=== PATIENT | male | born 1970 | race Caucasian/White ===

== ENCOUNTER 2020-10-02 21:24 | Emergency (ER) | payer SELFPAY ==
[~2020-10-02] VITALS: Ht 177.8 cm; Wt 79.4 kg
[2020-10-02 21:32] VITALS: BP 129/76
--- NOTE | 2020-10-02 21:38 | NUR ---
To ED bed 04.
[2020-10-02] MEDS ORDERED: NACL 0.9% 1,000 ML IV ONE (21:50)
[2020-10-02] MEDS ORDERED: ALUMINUM HYD/MAG/SIMETHICONE 30 ML UDC PO ONE (21:50)
[2020-10-02] MEDS ORDERED: FAMOTIDINE 20 MG TAB PO ONE (21:50)
[2020-10-02 22:00] LABS: BASOPHILS # (AUTO) 0.1 K/uL (0.00-0.22); BASOPHILS % (AUTO) 0.5 % (0.0-2.0); EOSINOPHILS # (AUTO) 0.5 K/uL (0-0.4); HEMATOCRIT 45.4 % (36-52); HEMOGLOBIN 15.5 g/dL (12.0-18.0); LYMPHOCYTES # (AUTO) 1.7 K/uL (2.0-11.5); LYMPHOCYTES % (AUTO) 13.5 % (20.5-51.1); MEAN CORPUSCULAR HEMOGLOBIN 31 pg (27-31); MEAN CORPUSCULAR HGB CONC 34 g/dL (33-37); MONOCYTES # (AUTO) 1.4 K/uL (0.8-1.0); MONOCYTES % (AUTO) 10.9 % (1.7-9.3); NEUTROPHILS # (AUTO) 9.2 K/uL (1.8-7.7); NEUTROPHILS % (AUTO) 71.1 % (42.2-75.2); PLATELET COUNT (AUTO) 195 K/uL (140-450); RED BLOOD CELL COUNT(AUTO) 4.99 MIL/uL (4.20-6.10); RED CELL DISTRIBUTION WIDTH 14.2 % (11.6-13.7); WHITE BLOOD COUNT (AUTO) 12.9 K/uL (4.8-10.8)
--- NOTE | 2020-10-02 22:03 | NUR ---
see complete assessment.
[2020-10-02 22:16] LABS: ALBUMIN 3.5 g/dL (3.4-5.0); ANION GAP 15.8 (8-16); CARBON DIOXIDE 23.8 mmol/L (21-32); POTASSIUM 3.6 mmol/L (3.5-5.1); TOTAL BILIRUBIN 0.2 mg/dL (0.0-1.0)
--- NOTE | 2020-10-03 00:04 | NUR ---
pt laying down in semi fowlers position. does not appear to be in distress. VSS. IV site patent and flushable.
[2020-10-03 00:05] VITALS: BP 99/63
--- NOTE | 2020-10-03 01:32 | NUR ---
d/c without signing paperwork.
== END 2020-10-03 01:32 | disposition home or self-care (01) ==
LOC: MED 21:24
DX: R10.13 Epigastric pain (principal)
CPT/HCPCS: 36415; 80053; 83690; 84484; 85025; 96360; 99283; J7030